=== PATIENT | female | born 1995 | race Hispanic/Latino ===

== ENCOUNTER 2019-02-11 22:46 | Emergency (ER) | payer OTHER | END 2019-02-11 23:15 | disposition home or self-care (01) | LOC: MADERS 22:46 | DX: T16.1XXA Foreign body in right ear, initial encounter (principal) | CPT/HCPCS: 99282 ==

== ENCOUNTER 2019-02-12 07:12 | Emergency (ER) | payer OTHER | END 2019-02-12 08:10 | disposition home or self-care (01) | LOC: MADERS 07:12 | DX: T16.1XXA Foreign body in right ear, initial encounter (principal) | CPT/HCPCS: 99282 ==